=== PATIENT | female | born 1945 | race Caucasian/White ===

== ENCOUNTER 2017-05-05 13:20 | Emergency (ER) | payer BC ==
[2017-05-05 13:22] VITALS: BP 202/111; PULSE 94; RESP 16; TEMP 98.6; O2SAT 95
--- NOTE | 2017-05-05 14:49 | PD ---
HPI Chief Complaint: Hypertension Time Seen by Provider: 14:43 Travel History International Travel<30 days: No Contact w/Intl Traveler<30days: No Traveled to known affect area: No History of Present Illness HPI 71-year-old female came to the emergency room with history of high blood pressure. She was seen in the urgent care for UTI. However vital signs incidentally showed hypertension. Patient says she has no symptoms whatsoever. No history of headache, blurred vision or chest pain. Even some medication for the blood pressure and sent here. Upon arrival patient's blood pressure was 245/118. She is awake and answering questions appropriately. Patient says that she used to be on blood pressure medications but her doctor weaned her off it by 20 years ago. Currently she does not have a primary care doctor. FORMERLY [facility], [facility] Past Medical History Narrative Medical List of her past medical, surgical, social and family history is reviewed from the nursing note. Social History Tobacco Use: Yes Allergies-Medications (Allergen,Severity, Reaction): Coded Allergies: No Known Allergies (Unverified , 05/05/17) Comments No known drug allergies. Reported Meds & Prescriptions Reported Meds & Active Scripts Active Amlodipine (Amlodipine Besylate) 5 Mg Tab 5 Mg PO DAILY Reported Melatonin 5 Mg Tab 5 Mg PO HS Narrative Medication List of her home medications reviewed from the nursing note. Review of Systems Except as stated in HPI: all other systems reviewed are Neg Physical Exam Narrative GENERAL: Awake, alert, no obvious distress SKIN: Focused skin assessment warm/dry. HEAD: Atraumatic. Normocephalic. EYES: Pupils equal and round. No scleral icterus. No injection or drainage. ENT: No nasal bleeding or discharge. Mucous membranes pink and moist. NECK: Trachea midline. No JVD. CARDIOVASCULAR: Regular rate and rhythm. No murmur appreciated. RESPIRATORY: No accessory muscle use. Clear to auscultation. Breath sounds equal bilaterally. GASTROINTESTINAL: Abdomen soft, non-tender, nondistended. Hepatic and splenic margins not palpable. MUSCULOSKELETAL: No obvious deformities. No clubbing. No cyanosis. No edema. NEUROLOGICAL: Awake and alert. No obvious cranial nerve deficits. Motor grossly within normal limits. Normal speech. PSYCHIATRIC: Appropriate mood and affect; insight and judgment normal. Data Data Last Documented VS Vital Signs Date Time Temp Pulse Resp B/P (MAP) Pulse Ox O2 Delivery O2 Flow Rate FiO2 05/05/17 16:20 97.8 78 16 158/86 (110) 99 05/05/17 15:54 Room Air Orders Orders Electrocardiogram (05/05/17 ) Clonidine (Catapres) (05/05/17 15:00) Ed Discharge Order (05/05/17 16:05) MDM Medical Decision Making Medical Screen Exam Complete: Yes Emergency Medical Condition: Yes Medical Record Reviewed: Yes Interpretation(s) Twelve-lead EKG was reviewed by me. Normal sinus rhythm, left axis deviation, LVH by voltage criteria, nonspecific ST-T wave changes. Heart rate of 77 bpm. Differential Diagnosis Essential hypertension, noncompliant Narrative Course 4 PM patient was given 0.2 mg of by mouth clonidine which has brought the blood pressure down sufficiently. I'm comfortable discharging her home with prescription. Procedures EKG Prior to Arrival: No Diagnosis Primary Impression: Hypertension Qualified Codes: I10 - Essential (primary) hypertension Referrals: Primary Care Physician Additional Instructions: Please take the medication as per the prescription direction. Return to the ER if the condition worsens or any other new concerns. Follow-up with your primary care. Med/Other Pt SpecificInfo: Prescription(s) given Scripts Amlodipine (Amlodipine) 5 Mg Tab 5 MG PO DAILY for Blood Pressure Management, #30 TAB 0 Refills Prov: Makeda Perez MD 05/05/17 Disposition: 01 DISCHARGE HOME Condition: Stable Makeda Perez MD May 05, 2017 14:49
[2017-05-05] MEDS ORDERED: cloNIDine HCL 0.2 MG TAB PO ONE (15:00)
[2017-05-05 15:09] VITALS: BP 221/100; PULSE 76; RESP 17; TEMP 97.8; O2SAT 98
[2017-05-05] MEDS ORDERED: MELA5 PO (15:09)
[2017-05-05 15:54] VITALS: BP 163/89; PULSE 71; RESP 17; TEMP 97.8; O2SAT 97
[2017-05-05] MEDS ORDERED: AMLO5TAB2 PO (16:07)
[2017-05-05 16:20] VITALS: BP 158/86; TEMP 97.8
--- NOTE | 2017-05-06 11:39 | EKG ---
Date Performed: 05/05/2017 Time Performed: 15:19:26 PTAGE: 71 years EKG: Sinus rhythm VOLTAGE CRITERIA FOR LVH ABNORMAL ECG NO PREVIOUS TRACING DOCTOR: Homer Polanco Interpretating Date/Time 05/06/2017 11:37:17
== END 2017-05-05 16:20 | disposition home or self-care (01) ==
LOC: NEPE 13:20
DX: I10 Essential (primary) hypertension (principal); Z72.0 Tobacco use
CPT/HCPCS: 93005; 99283